=== PATIENT | male | born 1975 | race Caucasian/White ===

== ENCOUNTER 2024-06-06 10:27 | Day surgery (SDC) | payer BC ==
--- NOTE | 2024-06-05 11:53 | HP ---
HISTORY OF PRESENT ILLNESS: Patient is a 48-year-old male who presents for screening colonoscopy. None to date. No colon issues. Patient had what looks like an WA back in 2010. He is on Plavix. PAST MEDICAL HISTORY: Coronary artery disease, hypertension, hyperlipidemia, GERD. HOME MEDICATIONS: Ozempic, Plavix, atorvastatin, Singulair, lisinopril. ALLERGIES: None. PAST SURGICAL HISTORY: Cardiac stent, cholecystectomy. SOCIAL HISTORY: Former smoker. Occasional alcohol. FAMILY HISTORY: Glaucoma, heart disease. REVIEW OF SYSTEMS: CONSTITUTIONAL: Denies fever or chills. CHEST: Denies shortness of breath. CARDIOVASCULAR: Denies chest pain. ABDOMEN: Denies abdominal pain. PHYSICAL EXAMINATION: GENERAL: No acute distress. CARDIOVASCULAR: Regular rate and rhythm. RESPIRATORY: Nonlabored. No shortness of breath. ABDOMEN: Soft. ASSESSMENT: Screening. PLAN: Colonoscopy with Dr. Will Beth. This report was dictated for Dr. Beth by Rose Marie Lockwood NP.
[2024-06-06 10:42] VITALS: RESP 18; O2SAT 98
[2024-06-06] MEDS ORDERED: DIPRIVAN 200 MG/20 ML IV ONE ×2 (13:32→13:45)
[2024-06-06 14:34] VITALS: TEMP 98
[2024-06-06 14:36] VITALS: BP 134/88; PULSE 86
--- NOTE | 2024-06-10 09:04 | OP ---
SURGERY DATE/TIME: 06/06/2024 [id number] PREOPERATIVE DIAGNOSIS: Screening. POSTOPERATIVE DIAGNOSIS: Normal. Followup 5 years. Prep excellent. PROCEDURE: Colonoscopy. SURGEON: Will Beth MD FINDINGS: Somewhat wide and certainly redundant colon, otherwise normal. DESCRIPTION OF PROCEDURE AND FINDINGS: Patient taken to endoscopy. Anal digital examination satisfactory. MAC general sedation. Scope introduced. Scope advanced to the cecum. Appendiceal orifice normal. Base of cecum normal. Ileocecal valve normal. Ascending, hepatic, transverse, splenic, descending, sigmoid, rectum, anus. Scope was placed back up to the mid transverse as the colon was a little redundant. It was seen a little better after good insufflation. Scope was brought out the second time. No mucosal lesions were noted. Anticipate followup 5 years.
== END 2024-06-06 14:42 | disposition home or self-care (01) ==
LOC: SDC 10:27
PROVIDERS: ATTEND Surgery
DX: Z12.11 Encounter for screening for malignant neoplasm of colon (principal); I10 Essential (primary) hypertension
CPT/HCPCS: 93005; J2704